=== PATIENT | female | born 1995 | race Two or more races ===

== ENCOUNTER 2024-12-21 14:33 | Emergency (ER) | payer MEDICAID, OTHER ==
[~2024-12-21] VITALS: Ht 152.4 cm; Wt 52.5 kg
[2024-12-21 14:34] VITALS: BP 126/83; PULSE 80; RESP 16; TEMP 98.3; O2SAT 97
--- NOTE | 2024-12-21 15:48 | ED.PDOC ---
History of Present Illness HPI Comments 29F who is maltese speaking presents to the ER w/ no prior MHx associated to the c/c of pelvic pain. Pt reports on being 9 weeks and having pelvic pain this morning associated w/ N/V. Pt notes taht she is currently taking vitamins. Denies chills, fever, /D, SOB, CP. Denies any other associated symptom's, modifiers, or recent injuries or sick contact at this time. Chief Complaint: Pelvic Pain Time Seen by MD: 15:45 Reviewed Notes: Nurses Notes, Medications, Allergies Allergies: Coded Allergies: NO KNOWN ALLERGIES (Unverified , 12/21/24) Information Source: Patient Mode of Arrival: Ambulatory Severity: Moderate Timing: Hours Duration: Since onset, Hours Prehospital treatment: None Past Medical History PAST MEDICAL HISTORY: Denies Surgical History: Denies all surgeries [employer] History: No Pertinent [employer] History Family History Family History: Reviewed,noncontributory to illness, Family hx of HTN Social History Smoker: Non-Smoker Alcohol: Denies ETOH Use Drugs: Denies Drug Use Lives In: Home Constitutional: denies: chills, diaphoresis, fatigue, fever, malaise, sweats, weakness, others EENTM: denies: blurred vision, double vision, ear bleeding, ear discharge, ear drainage, ear pain, ear ringing, eye pain, eye redness, hearing loss, mouth pain, mouth swelling, nasal discharge, nose bleeding, nose congestion, nose pain, photophobia, tearing, throat pain, throat swelling, voice changes, others Respiratory: denies: cough, hemoptysis, orthopnea, SOB at rest, shortness of breath, SOB with excertion, stridor, wheezing, others Cardiovascular: denies: chest pain, dizzy spells, diaphoresis, Dyspnea on exertion, edema, irregular heart beat, left arm pain, lightheadedness, palpitations, PND, syncope, others Gastrointestinal: reports: nausea, vomiting, others (pelvic pain); denies: abdomen distended, abdominal pain, blood streaked bowels, constipated, diarrhea, dysphagia, difficulty swallowing, hematemesis, melena, poor appetite, poor fluid intake, rectal bleeding, rectal pain Genitourinary: reports: (9 weeks); denies: abnormal vagina bleeding, burning, dyspareunia, dysuria, flank pain, frequency, hematuria, incontinence, pain, vagina discharge, urgency, others Neurological: denies: dizziness, fainting, headache, left sided numbness, left sided weakness, numbness, paresthesia, pre-existing deficit, right sided numbness, right sided weakness, seizure, speech problems, tingling, tremors, weakness, others Musculoskeletal: denies: back pain, gout, joint pain, joint swelling, muscle pain, muscle stiffness, neck pain, others Integumetry: denies: bruises, change in color, change in hair/nails, dryness, laceration, lesions, lumps, rash, wounds, others Allergic/Immunocompromised: denies: Difficulty Healing, Frequent Infections, Hi ves, Itching, others Hematologic/Lymphatic: denies: anemia, blood clots, easy bleeding, easy bruising, swollen glands, others Endocrine: denies: excessive hunger, excessive sweating, excessive thirst, excessive urination, flushing, intolerance to cold, intolerance to heat, unexplained weight gain, unexplained weight loss, others Psychiatric: denies: anxiety, bipolar disorder, depression, hopeless, panic disorder, schizophrenia, sleepless, suicidal, others All Other Systems: Reviewed and Negative Physical Exam General Appearance: No Apparent Distress HEENT: Normal ENT Inspection, Pharynx Normal, TMs Normal Neck: Full Range of Motion, Non-Tender, Normal, Normal Inspection Respiratory: Chest Non-Tender, Lungs Clear, No Accessory Muscle Use, No Respiratory Distress, Normal Breath Sounds Cardiovascular: No Edema, No JVD, No Murmur, No Gallop, Normal Peripheral Pulses, Regular Rate/Rhythm Breast Exam: Deferred Gastrointestinal: No Organomegaly, Non Tender, No Pulsatile Mass, Normal Bowel Sounds, Soft Genitalia: Deferred Pelvic: Deferred Rectal: Deferred Extremities: No calf tenderness, Normal capillary refill, Normal inspection, Normal range of motion, Non-tender, No pedal edema Musculoskeletal : Apperance: Normal Neurologic: Alert, melter caster II-XII nml as Tested, No Motor Deficits, Normal Affect, Normal Mood, No Sensory Deficits Cerebellar Function: Normal Reflexes: Normal Skin: Dry, Normal Color, Warm Lymphatic: No Adenopathy Was a procedure done? Was a procedure done?: No Differential Dx Considerations may include: Threatened , UTI, generalized weakness X-Ray, Labs, Meds, VS Vital Signs Date Time Temp Pulse Resp B/P (MAP) Pulse Ox O2 Delivery O2 Flow Rate FiO2 12/21/24 14:34 98.3 80 16 126/83 97 98.3 Lab Test 12/21/24 15:59 12/21/24 14:44 Range/Units Beta HCG, Quantitative 402054.0 H 1.5-4.2 mIU/mL Urine Color Yellow Yellow Urine Clarity Turbid H Clear Urine pH 6.5 5.0-9.0 Urine Specific Maurice 1.028 1.001-1.035 Urine Protein Negative Negative Urine Ketones 1+ H Negative Urine Blood Negative Negative /uL Urine Nitrite Negative Negative Urine Bilirubin Negative Negative Urine Urobilinogen Normal Negative mg/dL Urine Leukocyte Esterase Trace Negative /uL Urine RBC 2 0 - 4 /hpf Urine Microscopic WBC < 1 0-5 /HPF Urine Squamous Epithelial Cells Mod <5 /hpf Urine Bacteria Few H None Seen /hpf Urine Mucus Few None Seen Urine Glucose Normal Normal mg/dL The urine test is negative The quantitative hCG is [id number] The patient's pelvic ultrasound shows: IMPRESSION: Single live intrauterine gestation with measurements corresponding to a gestational age of 9 weeks 0 days and JESSA 07/26/2025. Small subchorionic hemorrhage. Short interval follow-up is recommended. The patient is being discharged Images Reviewed?: Images reviewed and evaluated by me Time of 1ST Reevaluation: 16:15 Reevaluation 1ST: Unchanged Time of 2ND Reevaluation: 19:24 Reevaluation 2ND: Improved Patient Education/Counseling: Diagnosis, Treatment, Prognosis, Need For Follow Up Family Education/Counseling: No Family Present SEPSIS Sepsis Screen Date sepsis recognized/suspect: Dec 21, 2024 Time Sepsis recognized/suspect: 1435 Recent Procedure: No On Antibiotic Therapy: No Respiratory Rate >20: No Heart Rate >90: No Temp<36 C (96.8 F) or >38.3 C: No SBP <90 or MAP <65 mmHG: No New Acute Mental Status Change: No Is the patient on CPAP, BIPAP,: No Physician Orders Ob Ultrasound Comp Less 14wks (12/21/24 15:46) Vital Signs Date Time Temp Pulse Resp B/P (MAP) Pulse Ox O2 Delivery O2 Flow Rate FiO2 12/21/24 14:34 98.3 80 16 126/83 97 98.3 Departure 1 Departure Time of Disposition: 19:23 Impression: Primary Impression: Threatened Disposition: 01 HOME / SELF CARE / HOMELESS Condition: Fair Discharged With: Self Critical Care Note Critical Care Time?: No Stability Stability form required: No Heart Score Heart Score: Heart Score Response (Comments) Value History N/A 0 EKG N/A 0 Age N/A 0 Risk Factors N/A 0 Troponin N/A 0 Total 0 I personally scribed for HOLDEN PATTON MD ([email or web address]) on 12/21/24 at 15:48. Electronically submitted by Delfino Ruiz ([email or web address]). HOLDEN PATTON MD Dec 21, 2024 15:48
--- NOTE | 2024-12-21 17:54 | DVH ---
FIRST TRIMESTER OBSTETRICAL ULTRASOUND HISTORY: pain. . LMP 10/22/2024. Gestational age by LMP 8 weeks 4 days with JESSA 07/29/2025. COMPARISON: None TECHNIQUE: Transabdominal and endovaginal imaging of the pelvis. FINDINGS: BIOMETRY: CRL: 2.27 cm, corresponding to 9 weeks 0 days Yolk sac: Identified. Sonographic age: 9 weeks 0 days, corresponding to an JESSA of 07/26/2025 HEART RATE: 175 bpm UTERUS: The uterus is anteverted and measures approximately 8.4 x 6.2 x 6.8 cm. There is an intrauter ine gestational sac. There is a 2.3 x 1.0 x 2.2 cm crescentic hypoechoic region adjacent to the gesta tional sac most consistent with subchorionic hemorrhage. CERVIX: Long and closed. ADNEXA: The right ovary measures 3.1 x 2.1 x 2.9 cm. The left ovary measures 3.2 x 1.7 x 2.2 cm. Exp ected blood flow is identified within each of the ovaries. OTHER: No free fluid is identified. IMPRESSION: Single live intrauterine gestation with measurements corresponding to a gestational age of 9 weeks 0 days and JESSA 07/26/2025. Small subchorionic hemorrhage. Short interval follow-up is recommended.
[2024-12-21 18:16] LABS: Urine Protein, UAD Negative (Negative)
== END 2024-12-21 19:59 | disposition home or self-care (01) ==
LOC: ER 14:33
DX: O20.0 Threatened abortion (principal); Z3A.09 9 weeks gestation of pregnancy
CPT/HCPCS: 36415; 76801; 81001; 84702